=== PATIENT | female | born 1975 | race Two or more races ===

== ENCOUNTER 2025-04-17 22:06 | Emergency (ER) | payer MEDICAID, SELFPAY ==
--- NOTE | 2025-04-17 22:09 | EKG_ITS ---
[facility] Test Date: 2025-04-17 Pat Name: MAXIMILIAN BOWLES Department: Room: - Gender: Female Division [employer] Supervisor: : 1975 Requested By: ED Temporary Provider Order Number: [id number] Reading MD: ED Temporary Provider Measurements Intervals [place] Rate: 77 P: 45 MT: 186 QRS: -13 QRSD: 101 T: 35 QT: 399 QTc: 454 Interpretive Statements SINUS RHYTHM LOW QRS VOLTAGE IN PRECORDIAL LEADS [QRS DEFLECTION < 1.0 mV IN CHEST LEADS] INCOMPLETE RIGHT BUNDLE BRANCH BLOCK [90+ ms QRS DURATION, TERMINAL R IN V1/V2, 40+ ms S IN I/aVL/V4/V5/V6] NONSPECIFIC T-WAVE ABNORMALITY Compared to ECG 01/31/2023 02:28:03 Low QRS voltage now present Incomplete right bundle-branch block now present T-wave abnormality still present /store/[id number]
[2025-04-17 22:30] VITALS: BP 181/90; PULSE 85; RESP 20; TEMP 36.8; O2SAT 98
--- NOTE | 2025-04-17 22:31 | PD.EDRME ---
Rapid Medical Screening Exam RME Arrival date/time: 04/17/25 22:06 Chief Complaint: General Adult/Misc Complain Time Seen by Provider: 04/17/25 22:29 Vital signs: Vital Signs Temperature 98.3 F 04/17/25 22:30 Pulse Rate 85 04/17/25 22:30 Respiratory Rate 20 04/17/25 22:30 Blood Pressure 181/90 H 04/17/25 22:30 Pulse Oximetry (%) 98 04/17/25 22:30 Oxygen Delivery Method Room Air 04/17/25 22:30 RME Narrative: Chest pain started today, reports high blood pressure. Hx HTN currently not on meds Exam: No acute distress Clinical Impression: Chest pain
--- NOTE | 2025-04-17 22:32 | XR_ITS ---
EXAMINATION: PA chest single view TECHNIQUE: Upright PA chest single view Date and time: April 21 25, 10:33 p.m. INDICATION: Chest pain today. FINDINGS: Normal heart size Lungs are clear. The Leonardo structures IMPRESSION: No active disease
[2025-04-17 23:08] LABS: Basophils # (Auto) 0.0 Thou/mm3 (0.0-0.2); Basophils % (Auto) 1 % (0-2.5); Eosinophils # (Auto) 0.2 Thou/mm3 (0.0-0.5); Eosinophils % (Auto) 2 % (0-10); Hematocrit 43.1 % (36.0-46.0); Hemoglobin 14.4 g/dL (12.0-16.0); Immature Granulocytes Auto 0.01 Thou/mm3 (0.00-0.00); Lymphocytes # (Auto) 1.9 Thou/mm3 (1.0-4.8); Lymphocytes % (Auto) 25 % (10-50); Mean Corpuscular HGB Conc 33.4 g/dl (31.0-37.0); Mean Corpuscular Hemoglobin 28.2 pg (25.0-35.0); Mean Corpuscular Volume 84 fL (80-100); Monocytes # (Auto) 0.5 Thou/mm3 (0.0-0.8); Monocytes % (Auto) 6 % (0-12); Neutrophils # (Auto) 5.2 Thou/mm3 (1.8-7.7); Neutrophils % (Auto) 67 % (37-80); Nucleated Red Blood Cell # 0.00 Thou/mm3 (0.00-0.00); Nucleated Red Blood Cell % 0 /100 WBC (0); Platelet Count 273 Thou/mm3 (140-440); RDW Standard Deviation 42.6 fL (36.4-46.3); Red Blood Count 5.11 Miln/mm3 (4.00-5.20); White Blood Count 7.8 Thou/mm3 (3.6-11.0)
[2025-04-17 23:23] LABS: Alanine Aminotransferase 12 U/L (10-49); Albumin, Serum 4.8 gm/dL (3.5-5.0); Albumin/Globulin Ratio 1.9 (1.2-2.2); Alkaline Phosphatase 154 U/L (46-116); Anion Gap 11 (7-16); Aspartate Amino Transferase 16 U/L (0-34); BUN/Creatinine Ratio 10 Ratio (12-20); Bilirubin,Total 0.4 mg/dL (0.3-1.2); Blood Urea Nitrogen 8 mg/dL (9-23); Calcium 9.1 mg/dL (8.3-10.6); Calcium (Corrected) 9.1 mg/dL (8.5-10.1); Carbon Dioxide 26.9 mMol/L (20.0-31.0); Chloride 107 mMol/L (98-107); Creatinine (Component) 0.8 mg/dL (0.6-1.3); Globulin 2.5 gm/dL (2.3-3.5); Glucose 120 mg/dL (74-106); Osmolality,Calculated 288 (275-295); Potassium 3.3 mMol/L (3.4-5.1); Sodium 145 mMol/L (136-145); Total Protein 7.3 gm/dL (5.7-8.2); Troponin I < 0.002 ng/mL (0.0-0.045); eGFR > 60 See Note
[2025-04-17 23:25] LABS: B-Type Natriuretic Peptide < 20 pg/mL (0-100)
[2025-04-17 23:44] VITALS: BP 149/89; PULSE 67; RESP 16; TEMP 36.8; O2SAT 97
[2025-04-18 01:25] LABS: Troponin I < 0.002 ng/mL (0.0-0.045)
--- NOTE | 2025-04-18 01:31 | PD.EDCHEST ---
ED Chest Pain RME/HPI General Chief Complaint: General Adult/Misc Complain Stated Complaint: HIGH BP Time Seen by Provider: 04/17/25 22:29 Source: patient, family, RN notes reviewed and old records reviewed Arrival date/time: 04/17/25 22:06 Mode of arrival: ambulatory Limitations: no limitations RME / HPI RME / HPI narrative: 50yof presents to ED for elevated blood pressures at home today. Patient c/o chest discomfort. She has history of hypertension but is currently not taking medication. No shortness of breath, lightheadedness, palpitations, nausea/vomiting, dizziness or syncope reported. 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 Related Data Home Medications ?Medication ?Instructions ?Recorded ?Confirmed Vitamin * 1 PO QDAY #0 tabs 01/27/17 metformin 500 mg tablet 100 mg PO BID #0 tabs 01/27/17 (Glucophage) Allergies Allergy/AdvReac Type Severity Reaction Status Date / Time No Known Allergies Allergy Verified 04/17/25 22:06 Review of Systems Review of Systems Systems Reviewed: All systems reviewed, normal except as documented Constitutional Constitutional: Denies headache(s) ENT Ears, Nose, Mouth, and Throat: Denies dizziness and Denies headache(s) Cardiovascular Cardiovascular: Reports chest pain, Denies dyspnea, Denies lightheadedness, Denies palpitations and Denies syncope Respiratory Respiratory: Denies dyspnea Gastrointestinal Gastrointestinal: Denies nausea and Denies vomiting Neurologic Neurologic: Denies dizziness, Denies headache(s) and Denies syncope Endocrine Endocrine: Denies palpitations Past Medical History Past Medical History CARDIAC: Positive Hypertension GASTROINTESTINAL: Positive Obesity PSYCHO/SOCIAL: Positive Anxiety Social History SMOKING STATUS: Never smoker SUBSTANCE USE: does not use ALCOHOL: Never ED Exam General Limitations: Present no limitations General appearance: Present alert and in no apparent distress Head Head exam: Present atraumatic and normocephalic Eye Eye exam: Present normal appearance, PERRL and EOMI ENT ENT exam: Present normal exam and mucous membranes moist Neck Neck exam: Present normal inspection and full ROM Chest Chest inspection: Present normal inspection and symmetric chest wall rise Respiratory Respiratory exam: Present normal lung sounds bilaterally; Absent respiratory distress Cardiovascular Cardiovascular exam: Present regular rate and normal rhythm Extremities Exam Extremities exam: Present normal inspection, full ROM and normal capillary refill; Absent pedal edema Neurological Exam Neurological exam: Present alert and oriented X3 Psychiatric Psychiatric exam: Present anxious Skin Skin exam: Present warm, dry, intact and normal color Course Quality Measures none Orders Category Date Time Status EKG (ED ONLY) *Do not use* NOW Care 04/17/25 22:09 Completed CXR [XR chest 1V] Stat Exams 04/17/25 22:32 Completed EKG (ED Only) Stat Exams 04/17/25 22:09 Draft BNP [B-Type Natriuretic Peptide] Stat Lab 04/17/25 22:57 Completed CBC Stat Lab 04/17/25 22:57 Completed CMP [Comprehensive Metabolic Panel] Stat Lab 04/17/25 22:57 Completed Troponin I Stat Lab 04/17/25 22:57 Completed Troponin I Stat Lab 04/18/25 00:52 Completed Vital Signs Vital signs: Vital Signs Temperature 98.3 F 04/17/25 22:30 Pulse Rate 85 04/17/25 22:30 Respiratory Rate 20 04/17/25 22:30 Blood Pressure 181/90 H 04/17/25 22:30 Pulse Oximetry (%) 98 04/17/25 22:30 Oxygen Delivery Method Room Air 04/17/25 22:30 PROCEDURES: EKG Interpretation #1: Date of EK04/17/25 Rate: 77 Interpretation: Interpreted by me EKG Impression: Normal sinus rhythm, No acute ST-T changes, Normal intervals and Normal axis Additional EKG comment: Incomplete RBBB Nonspecific T wave changes No STEMI Chest Pain MDM Narrative MDM Narrative:: 50yof presents to ED for elevated blood pressures at home today. Patient c/o chest discomfort. She has history of hypertension but is currently not taking medication. No shortness of breath, lightheadedness, palpitations, nausea/vomiting, dizziness or syncope reported. 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 Cardiac workup reassuring. Denies chest pain at time of discharge. Heart score 2, low risk. Encouraged close PCP follow-up for blood pressure management. Stable for discharge, RTED precautions given. Patient data External records reviewed:: [facility] previous records (04/01/2023 ED visit for anxiety attack) Clinical information provided by:: patient Social determinants that could affect healthcare access:: other (specify) (Poor access to healthcare, unemployed, acculturation difficulty) Patient has the following chronic illnesses:: Hypertension, anxiety How is presenting disease/condition affected by chronic disease/condition?: exacerbated by Evaluation data The following diagnostics were reviewed and interpreted by me:: lab results, radiology exam(s) and EKG tracing(s) Lab and/or radiology exams considered but not ordered:: None Interpretation Summary: Negative troponin x2 CXR: No acute process per my read Medications / Prescriptions Medications or Prescriptions considered but not ordered:: Blood pressure med: BP downtrending without intervention Medication administrations:: None Consultations Consultation(s) initiated? (list below): No Diagnosis Chest Pain Differential Diagnosis: other (Chest pain, anxiety, elevated blood pressure, ACS, angina, STEMI, costochondritis) Most likely diagnosis given after review of the tests above:: Chest pain, anxiety Admission Indicated Admission indicated?: not indicated Admission Request Was there a request for admission?: No Disposition Plan Disposition Plan: Discharge Discharge Attestation Discharge Attestation: The patient and all family members were given an opportunity to ask questions and understood the discharge instructions. Discharge instructions specifically effects, indications for sooner follow up or return to the emergency department, and the expected course of current diagnosis. Patient condition: Stable Discharge Plan Plan Patient Disposition: HOME (Self Care) Patient condition on transfer: Stable Prescriptions/Referrals Prescriptions/Med Rec: No Action metformin [Glucophage] 500 MG tablet 100 mg PO BID Qty: 0 Vitamin * 1 EACH tablet 1 PO QDAY Qty: 0 Referrals: No Primary/Family,Physician [Primary Care Provider] - In 1 week Problem List Clinical Impression: Elevated blood pressure reading with diagnosis of hypertension, Chest pain Patient/Caregiver Discharge Instructions Education Materials: ED Hypertension, Established Additional Instructions: Follow-up with your primary care physician for blood pressure management. Print Language: Uzbek Stand Alone Forms: Gem Award Info., Patient Portal Info Letter PA/COMMISSIONED FIRE OFFICER Supervising Physician PA/COMMISSIONED FIRE OFFICER Supervising Physician: Branden
[2025-04-18 01:50] VITALS: BP 174/91; PULSE 62; RESP 16; O2SAT 98
== END 2025-04-18 01:51 | disposition home or self-care (01) ==
PROVIDERS: Physician Assistant; Emergency Provider Emergency Medicine
DX: R07.9 Chest pain, unspecified (principal); F41.9 Anxiety disorder, unspecified; I10 Essential (primary) hypertension
CPT/HCPCS: 36415; 71045; 80053; 83880; 84484; 85025; 93005; 99283

== ENCOUNTER 2025-04-22 04:51 | Emergency (ER) | payer MEDICAID, SELFPAY ==
[2025-04-22 04:57] VITALS: BP 171/95; PULSE 78; RESP 18; TEMP 36.6; O2SAT 100; BMI 37.8
--- NOTE | 2025-04-22 05:00 | EKG_ITS ---
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1975 Requested By: Donald Zacarias Order Number: [id number] Reading MD: Donald Zacarias Measurements Intervals [facility] Rate: 75 P: 41 MO: 162 QRS: -8 QRSD: 80 T: 32 QT: 360 QTc: 403 Interpretive Statements SINUS RHYTHM POSSIBLE RIGHT VENTRICULAR CONDUCTION DELAY [RSR (QR) IN V1/V2] MINIMAL VOLTAGE CRITERIA FOR LVH, CONSIDER NORMAL VARIANT [MEETS CRITERIA IN ONE OF: R(aVL), S(V1), R(V5), R(V5/V6)+S(V1)] NONSPECIFIC T-WAVE ABNORMALITY Compared to ECG 04/17/2025 22:32:49 Incomplete right bundle-branch block no longer present T-wave abnormality still present /store/S0/[id number]/[id number].pdf
--- NOTE | 2025-04-22 05:08 | XR_ITS ---
EXAMINATION: PA chest single view TECHNIQUE: Upright PA chest single view Date and time: April 22, 2025, 0511 hours, comparison April 17, 2025 INDICATIONS: High blood pressure beginning last night. FINDINGS: Normal heart size Lungs are clear. Osseous structures are intact IMPRESSION: No active disease
--- NOTE | 2025-04-22 05:08 | PD.EDRME ---
Rapid Medical Screening Exam RME Arrival date/time: 04/22/25 04:51 This is a case of 50-year-old female who came in in the emergency room who woke up with chest tightness and shortness of breath patient took his blood pressure and noted to be 185/100 thus decided to start consult her in the emergency room Chief Complaint: General Adult/Misc Complain Time Seen by Provider: 04/22/25 05:07 Vital signs: Vital Signs Temperature 98 F 04/22/25 04:57 Pulse Rate 78 04/22/25 04:57 Respiratory Rate 18 04/22/25 04:57 Blood Pressure 171/95 H 04/22/25 04:57 Pulse Oximetry (%) 100 04/22/25 04:57 Oxygen Delivery Method Room Air 04/22/25 04:57 Exam: Awake alert oriented x 4 no focal deficit GCS 15/15 steady gait normal rate regular rhythm no murmur no edema clear breath sounds Clinical Impression: Chest pain elevated blood pressure
[2025-04-22 05:40] LABS: Basophils # (Auto) 0.0 Thou/mm3 (0.0-0.2); Basophils % (Auto) 0 % (0-2.5); Eosinophils # (Auto) 0.3 Thou/mm3 (0.0-0.5); Eosinophils % (Auto) 4 % (0-10); Hematocrit 45.5 % (36.0-46.0); Hemoglobin 15.1 g/dL (12.0-16.0); Immature Granulocytes Auto 0.02 Thou/mm3 (0.00-0.00); Lymphocytes # (Auto) 2.1 Thou/mm3 (1.0-4.8); Lymphocytes % (Auto) 27 % (10-50); Mean Corpuscular HGB Conc 33.2 g/dl (31.0-37.0); Mean Corpuscular Hemoglobin 28.1 pg (25.0-35.0); Mean Corpuscular Volume 85 fL (80-100); Monocytes # (Auto) 0.5 Thou/mm3 (0.0-0.8); Monocytes % (Auto) 6 % (0-12); Neutrophils # (Auto) 5.1 Thou/mm3 (1.8-7.7); Neutrophils % (Auto) 63 % (37-80); Nucleated Red Blood Cell # 0.00 Thou/mm3 (0.00-0.00); Nucleated Red Blood Cell % 0 /100 WBC (0); Platelet Count 280 Thou/mm3 (140-440); RDW Standard Deviation 43.2 fL (36.4-46.3); Red Blood Count 5.37 Miln/mm3 (4.00-5.20); White Blood Count 8.0 Thou/mm3 (3.6-11.0)
[2025-04-22 06:03] LABS: Alanine Aminotransferase 12 U/L (10-49); Albumin, Serum 4.8 gm/dL (3.5-5.0); Albumin/Globulin Ratio 2.0 (1.2-2.2); Alkaline Phosphatase 149 U/L (46-116); Anion Gap 6 (7-16); Aspartate Amino Transferase 16 U/L (0-34); BUN/Creatinine Ratio 11 Ratio (12-20); Bilirubin,Total 0.5 mg/dL (0.3-1.2); Blood Urea Nitrogen 9 mg/dL (9-23); Calcium 9.3 mg/dL (8.3-10.6); Calcium (Corrected) 9.3 mg/dL (8.5-10.1); Carbon Dioxide 30.5 mMol/L (20.0-31.0); Chloride 107 mMol/L (98-107); Creatinine (Component) 0.8 mg/dL (0.6-1.3); Estimated Creatinine Clearance 83.9 mL/min (>60); Globulin 2.4 gm/dL (2.3-3.5); Glucose 131 mg/dL (74-106); Osmolality,Calculated 285 (275-295); Potassium 3.8 mMol/L (3.4-5.1); Sodium 143 mMol/L (136-145); Total Protein 7.2 gm/dL (5.7-8.2); Troponin I < 0.002 ng/mL (0.0-0.045); eGFR > 60 See Note
[2025-04-22 06:04] VITALS: BP 145/90; PULSE 80
--- NOTE | 2025-04-22 06:21 | EDNOTE_ITS ---
<Statement entered by Mariangel Alcazar MD - 04/22/25 17:55> As co-signing physician, I was present and available for consult prn. I concur with the plan and care as documented by the midlevel provider. ED Chest Pain RME/HPI General Chief Complaint: General Adult/Misc Complain Stated Complaint: BP HIGH NOT FEELING WELL Time Seen by Provider: 04/22/25 05:07 Source: patient Arrival date/time: 04/22/25 04:51 50-year-old female with a history of type 2 diabetes, hypertension presents to the emergency room with a chief complaint of chest tightness, shortness of breath, and not feeling well since waking up. Patient states she took her blood pressure this morning and her systolic was 185 Mode of arrival: ambulatory Limitations: no limitations RME / HPI RME / HPI narrative: 04/22/25 04:51 This is a case of 50-year-old female who came in in the emergency room who woke up with chest tightness and shortness of breath patient took his blood pressure and noted to be 185/100 thus decided to start consult her in the emergency room Exam: Awake alert oriented x 4 no focal deficit GCS 15/15 steady gait normal rate regular rhythm no murmur no edema clear breath sounds Impression: Chest pain elevated blood pressure Related Data Home Medications ?Medication ?Instructions ?Recorded ?Confirmed Vitamin * 1 PO QDAY #0 tabs 01/27/17 metformin 500 mg tablet 100 mg PO BID #0 tabs (Glucophage) Allergies Allergy/AdvReac Type Severity Reaction Status Date / Time No Known Allergies Allergy Verified 04/22/25 04:59 Review of Systems Review of Systems Systems Reviewed: All systems reviewed, normal except as documented Constitutional Constitutional: Reports system reviewed and no additional complaints, except as documented, Denies fatigue, Denies fever(s), Denies headache(s) and Denies weakness Eyes Eyes: Reports system reviewed and no additional complaints, except as documented, Denies blurry vision and Denies change in vision ENT Ears, Nose, Mouth, and Throat: Reports system reviewed and no additional complaints, except as documented, Denies otalgia, Denies headache(s), Denies na garth congestion, Denies throat swelling and Denies vertigo Cardiovascular Cardiovascular: Reports system reviewed and no additional complaints, except as documented, Reports chest pain, Reports dyspnea and Denies dyspnea on exertion Respiratory Respiratory: Reports system reviewed and no additional complaints, except as documented, Denies chest congestion, Denies cough, Reports dyspnea, Denies dyspnea on exertion and Denies wheezing Gastrointestinal Gastrointestinal: Reports system reviewed and no additional complaints, except as documented, Denies abdominal pain, Denies cramping, Denies nausea and Denies vomiting Genitourinary Genitourinary: Reports system reviewed and no additional complaints, except as documented Musculoskeletal Musculoskeletal: Reports system reviewed and no additional complaints, except as documented and Denies back pain Integumentary/Breasts Skin/Breast: Reports system reviewed and no additional complaints, except as documented and Denies wounds Neurologic Neurologic: Reports system reviewed and no additional complaints, except as documented, Denies confusion, Denies headache(s), Denies lack of coordination, Denies vertigo and Denies weakness Psychiatric Psychiatric: Reports system reviewed and no additional complaints, except as documented, Denies anxiety, Denies confusion, Denies depression, Denies paranoia, Denies suicidal ideation and Denies tactile hallucinations Endocrine Endocrine: Reports system reviewed and no additional complaints, except as documented and Denies fatigue Hematologic/Lymphatic Hematologic/Lymphatic: Reports system reviewed and no additional complaints, except as documented and Denies lymphadenopathy Allergic/Immunologic Allergic/Immunologic: Reports system reviewed and no additional complaints, except as documented, Denies throat swelling, Denies urticaria and Denies wheezing Past Medical History Past Medical History CARDIAC: Positive Hypertension; Negative Congestive Heart Failure RESPIRATORY: Negative Chronic Obstructive Pulmonary Disease (COPD) GASTROINTESTINAL: Positive Obesity GENITOURINARY: Negative Renal Disease ENDOCRINE: Negative Diabetes Mellitus Type 1 or Diabetes Mellitus Type 2 PSYCHO/SOCIAL: Positive Anxiety Social History SMOKING STATUS: Never smoker SUBSTANCE USE: does not use ED Exam General Limitations: Present no limitations General appearance: Present alert and in no apparent distress Head Head exam: Present atraumatic Eye Eye exam: Present normal appearance, PERRL and EOMI ENT ENT exam: Present normal exam, normal oropharynx and mucous membranes moist Neck Neck exam: Present normal inspection, full ROM and trachea midline Chest Chest inspection: Present normal inspection and symmetric chest wall rise; Absent tenderness, rash, abscess or other Respiratory Respiratory exam: Present normal lung sounds bilaterally; Absent respiratory distress, wheezes, stridor, accessory muscle use or prolonged expiratory phase Cardiovascular Cardiovascular exam: Present regular rate, normal rhythm, normal heart sounds, +S1 and +S2; Absent bradycardia, tachycardia, irregular rhythm, systolic murmur, diastolic murmur, rubs, gallop, clicks or JVD Abdominal Exam Abdominal exam: Present soft and normal bowel sounds Extremities Exam Extremities exam: Present normal inspection and full ROM Back Exam Back exam: Present normal inspection and full ROM Neurological Exam Neurological exam: Present alert, oriented X3 and CN II-XII intact Psychiatric Psychiatric exam: Present normal affect and normal mood Skin Skin exam: Present warm, dry, intact and normal color Course Quality Measures none Orders Category Date Time Status EKG (ED ONLY) *Do not use* NOW Care 04/22/25 05:00 Completed EKG (ED ONLY) *Do not use* NOW Care 04/22/25 05:08 Completed EKG (ED Only) Stat Exams 04/22/25 05:00 Draft EKG (ED Only) Stat Exams 04/22/25 05:08 Ordered XR chest 1V Stat Exams 04/22/25 05:08 Taken CBC Stat Lab 04/22/25 05:21 Completed Comprehensive Metabolic Panel Stat Lab 04/22/25 05:21 Completed Troponin I Stat Lab 04/22/25 05:21 Completed Urinalysis Stat Lab 04/22/25 06:18 Completed cloNIDine HCL [Catapres] Med 04/22/25 05:08 Discontinued 0.1 mg PO X1 ONE Vital Signs Vital signs: Vital Signs Temperature 98 F 04/22/25 04:57 Pulse Rate 78 04/22/25 04:57 Respiratory Rate 18 04/22/25 04:57 Blood Pressure 171/95 H 04/22/25 04:57 Pulse Oximetry (%) 100 04/22/25 04:57 Oxygen Delivery Method Room Air 04/22/25 04:57 Chest Pain MDM Narrative MDM Narrative:: 50-year-old female with a history of type 2 diabetes, hypertension presents to the emergency room with a chief complaint of chest tightness, shortness of breath, and not feeling well since waking up. Patient states she took her blood pressure this morning and her systolic was 185 Patient is hemodynamically stable and in no apparent distress. Patient's initial blood pressure was 171/95. During my reevaluation the patient's blood pressure was 145/90. Physical examination shows a strong and regular rhythm S1 and S2 noted. No systolic or diastolic murmurs. No JVD no lower extremity edema. No gallops no clicks. The patient has clear bilateral lung sounds. During my reevaluation patient states she is not having any chest pain or shortness of breath and that her main complaint for coming to the emergency room today was due to her systolic blood pressure being at 185. Patient states she is feeling a lot better since her blood pressure decreased. I spoke to the patient and told her that all her blood work was within normal limits. Her EKG showed normal sinus rhythm. Patient was educated to follow-up with her primary care provider and if her signs and symptoms continue a referral to a airbrush painter may be indicated. Patient was discharged and educated to follow-up with primary care provider in the next 24 to 48 hours and return to the emergency room for any evidence of worsening signs or symptoms Patient data External records reviewed:: [facility] previous records Clinical information provided by:: patient Social determinants that could affect healthcare access:: none Patient has the following chronic illnesses:: Hypertension, type 2 diabetes How is presenting disease/condition affected by chronic disease/condition?: exacerbated by Evaluation data The following diagnostics were reviewed and interpreted by me:: lab results and radiology exam(s) Lab and/or radiology exams considered but not ordered:: Labs and radiology exams considered and ordered Interpretation Summary: Chest x-ray-no pneumonic infiltrates Medications / Prescriptions Medications or Prescriptions considered but not ordered:: Medication given Medication administrations:: Medication Administration History Discontinued Medications Clonidine (Clonidine Hcl 0.1 Mg Tablet) 0.1 mg PO X1 ONE Stop: 04/22/25 05:09 Last Admin: 04/22/25 06:04 Dose: 0.1 mg Documented By: JE Medication given Consultations Consultation(s) initiated? (list below): No Diagnosis Chest Pain Differential Diagnosis: stable angina, unstable angina pectoris, atypical chest pain, st elevation myocardial infarction, costochondritis, chest pain and other (Asymptomatic hypertensive urgency) Most likely diagnosis given after review of the tests above:: Asymptomatic hypertensive urgency Admission Indicated Admission indicated?: not indicated Admission Request Was there a request for admission?: No Disposition Plan Disposition Plan: Discharge Discharge Attestation Discharge Attestation: The patient and all family members were given an opportunity to ask questions and understood the discharge instructions. Discharge instructions specifically effects, indications for sooner follow up or return to the emergency department, and the expected course of current diagnosis. Patient condition: Stable Discharge Plan Plan Patient Disposition: HOME (Self Care) Discharge Disposition comment: Stable Prescriptions/Referrals Prescriptions/Med Rec: No Action metformin [Glucophage] 500 MG tablet 100 mg PO BID Qty: 0 Vitamin * 1 EACH tablet 1 PO QDAY Qty: 0 Referrals: Constantino Gordon MD [Primary Care Provider, Family Practice] - In 1 week Problem List Clinical Impression: Asymptomatic hypertensive urgency Patient/Caregiver Discharge Instructions Additional Instructions: Por favor, acuda a elam m?dico de cabecera en las pr?ximas 24 a 48 horas. Elam examen card?aco de hoy fue normal. Se le administr? medicaci?n y elam presi?n arterial baj? a un nivel seguro para el zachary. Por favor, tome elam medicamento para la presi?n arterial seg?n las indicaciones. Si observa alg?n empeoramiento de los signos o s?ntomas, regrese a urgencias de inmediato. Print Language: Somali Stand Alone Forms: Gem Award Info., Work/School Release, Patient Portal Info Letter PA/WATER FABRICATOR OPERATOR Supervising Physician PA/WATER FABRICATOR OPERATOR Supervising Physician: Dr. Kelly
[2025-04-22 06:22] LABS: Collection Type, Urine Clean Catch
[2025-04-22 06:47] LABS: Bacteria,Urine Rare; Bilirubin,Urine Negative (Negative); Blood,Urine Negative (Negative); Clarity,Urine Clear (Clear/Hazy); Color,Urine Colorless (Lt Yel-Yel); Glucose, Urine Negative (Negative); Ketones,Urine Negative (Negative); Leukocyte Esterase,Urine Negative (Negative); Nitrite,Urine Negative (Negative); PH,Urine 7.0 (5.0-7.0); Protein,Urine Negative (Neg - Trace); RBC,Urine 1 /hpf (0-3); Specific Gravity,Urine 1.011 (1.001-1.035); Squamous Epithelial Cell,Urine < 1 /hpf (0-5); Urobilinogen,Urine Negative mg/dL (0.0-1.0); WBC,Urine < 1 /hpf (0-5)
== END 2025-04-22 06:42 | disposition home or self-care (01) ==
PROVIDERS: Nurse Practitioner Family; Emergency Provider Emergency Medicine; PCP Family Medicine
DX: I16.0 Hypertensive urgency (principal); E11.9 Type 2 diabetes mellitus without complications; I10 Essential (primary) hypertension; Z79.84 Long term (current) use of oral hypoglycemic drugs
CPT/HCPCS: 36415; 71045; 80053; 81001; 84484; 85025; 93005; 99283; A9270